=== PATIENT | male | born 1965 | race Caucasian/White ===

== ENCOUNTER 2023-03-02 21:25 | Outpatient (CLI) | payer MEDICARE | END 2023-03-02 21:26 | disposition critical access hospital (66) | LOC: EMS 21:25 | DX: S61.213A Laceration without foreign body of left middle finger without damage to nail, initial encounter (principal); W27.0XXA Contact with workbench tool, initial encounter; Y93.89 Activity, other specified; Y92.009 Unspecified place in unspecified non-institutional (private) residence as the place of occurrence of the external cause | CPT/HCPCS: A0425; A0429 ==

== ENCOUNTER 2023-03-02 21:58 | Emergency (ER) | payer MEDICARE ==
--- NOTE | 2023-03-02 22:41 | ED Physician Documentation ---
PD HPI UPPER EXT INJURY - Stated complaint Stated Complaint: FINGER LAC - Chief complaint Chief Complaint: Laceration - History obtained from History obtained from: Patient - Additonal information Additional information: BIBA. 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 He says "I was not paying attention" (per patient) when he accidentally cut off the tip of his left middle finger. He is right hand dominant, but uses both hands to play guitar, piano. Patient is UTD on tetanus (within 5 years). He does not take any blood thinning medication. Patient did not bring the avulsed tissue with him to the ED. Review of Systems Skin: reports: Other (avulsed tip of left middle finger) PD PAST MEDICAL HISTORY - Past Medical History Past Medical History: Yes Other Past Medical History: peripheral neuropathy - Past Surgical History Past Surgical History: No - Present Medications Home Medications: Ambulatory Orders Medication Instructions Recorded Confirmed Doxycycline [Vibramycin] 100 mg PO BID #10 tablet 03/02/23 Gabapentin [Gralise] 300 mg PO 03/02/23 Morphine ER [Ms Contin] 03/02/23 Zolpidem [Ambien] 5 mg PO HS 03/02/23 03/02/23 methocarbamoL [Methocarbamol] 500 mg PO 03/02/23 - Allergies Allergies/Adverse Reactions: Allergies Allergy/AdvReac Type Severity Reaction Status Date / Time No Known Drug Allergies Allergy Verified 03/02/23 22:13 - Social History Does the pt smoke?: Yes Smoking Status: Current every day smoker Does the pt drink ETOH?: Yes - POLST Patient has POLST: No PD ED PE NORMAL - Vitals Vital signs reviewed: Yes - General General: Alert and oriented X 3, No acute distress, Well developed/nourished PD ED PE EXPANDED - Extremities VIKI UE/Hands Visual: 1 - deformity (avulsion of finger tip at/distal to demarcation on this diagram. minimal distal nail involvement but no evidence of nail bed involvment. no exposed bone.) Results - Vitals Vitals: Oxygen O2 Source Room air PD Medical Decision Making - ED course Complexity details: considered differential, d/w patient ED course: Patient presents with left middle finger injury; specifically, avulsion of the fingertip. There is very minimal involvement of the distal-most edge of the fingernail and there is no evidence of nailbed involvement. There is no bone exposed. During ED stay, he has brief, intermittent episodes of brisk, slightly pulsatile bleeding from the area of avulsion; the bleeding appears to be coming from adjacent to the distal edge of the nail. Hemostasis was easily achieved with anterior to posterior pressure for a few minutes. He has full extension and flexion of the finger including at the distal interphalangeal joint. He is given an antibiotic p.o. in the ED (doxycycline) and a 5-day course is prescribed (for wound prophylaxis). Gelfoam was placed over the avulsed area over which a non-stick dressing was then placed followed by a gauze wrap and that followed by Coban to provide some counter-pressure to the bleeding. Return precautions are discussed with the patient. Emphasis is placed on the need for follow-up, ideally within the next few days with his primary care provider. We discussed options for analgesia. He says he takes 30 mg of MS Contin per day and has missed today's dose (he says he takes this for painful peripheral neuropathy). He says he has more at home, but he is not going back home until tomorrow (at this time, he is staying at someone else's house). Thus, he is given 30 mg p.o. MS Contin in the ED as well as a take-home pack of percocet to provide further analgesia until he return home tomorrow. Departure - Departure Disposition: 01 Home, Self Care Clinical Impression: Fingertip avulsion Qualifiers: Encounter type: initial encounter Qualified Code(s): S61.209A - Unspecified open wound of unspecified finger without damage to nail, initial encounter Condition: Good Instructions: ED Laceration Amputation Finger Tip Open Tx Prescriptions: Doxycycline [Vibramycin] 100 mg PO BID #10 tablet Comments: Contact your primary care provider when their office is next open to arrange for a follow-up/reevaluation of the injury. Ideally, you should follow-up for this reevaluation in 3 to 5 days. Forms: PCP List Discharge Date/Time: 03/02/23 23:58
[2023-03-02] MEDS ORDERED: MORPHINE ER 15 MG TABLET PO STA (23:11)
[2023-03-02] MEDS ORDERED: oxyCODONE/ACET 5/325 Prepack 4 PO STA (23:11)
[2023-03-02] MEDS ORDERED: DOXYCYCLINE 100 MG TABLET PO STA (23:14)
[2023-03-03 00:03] VITALS: BP 120/80; O2SAT 95
== END 2023-03-02 23:58 | disposition home or self-care (01) ==
LOC: EDUNIT# → ED 21:58
DX: S61.203A Unspecified open wound of left middle finger without damage to nail, initial encounter (principal); W27.0XXA Contact with workbench tool, initial encounter; Y93.H9 Activity, other involving exterior property and land maintenance, building and construction; Y92.009 Unspecified place in unspecified non-institutional (private) residence as the place of occurrence of the external cause; F17.200 Nicotine dependence, unspecified, uncomplicated
CPT/HCPCS: 99282; 99283; A9270